=== PATIENT | female | born 1995 | race Caucasian/White ===

== ENCOUNTER 2017-11-06 16:22 | Emergency (ER) | payer OTHER ==
[2017-11-06 16:53] VITALS: BP 138/78
--- NOTE | 2017-11-06 16:55 | UC ---
Respiratory Complaint HPI - HPI Summary HPI Summary: 22 year old female presents with complains of cough and right sided back pain. - History of Current Complaint Chief Complaint: UCGeneralIllness Stated Complaint: COUGH,BACK & RIB PAIN Time Seen by Provider: 11/06/17 16:55 Hx Obtained From: Patient Hx Last Menstrual Period: 10/30/17 Onset/Duration: Sudden Onset Severity Initially: Moderate Severity Currently: Moderate Pain Scale Used: 0-10 Numeric - 5 - Allergies/Home Medications Allergies/Adverse Reactions: Allergies Allergy/AdvReac Type Severity Reaction Status Date / Time Amoxicillin Allergy Hives Verified 11/06/17 16:47 Azithromycin [From Zithromax] Allergy Hives Verified 11/06/17 16:47 Penicillins Allergy Hives Verified 11/06/17 16:47 PMH/Surg Hx/FS Hx/Imm Hx Previously Healthy: Yes - Surgical History Surgical History: None - Family History Known Family History: Positive: Other - mother with gallbladder disease - Social History Alcohol Use: None Substance Use Type: None Smoking Status (MU): Never Smoked Tobacco - Immunization History Most Recent Influenza Vaccination: no Review of Systems Constitutional: Negative Skin: Negative Eyes: Negative ENT: Sore Throat, Nasal Discharge, Sinus Congestion, Sinus Pain/Tenderness Respiratory: Cough Cardiovascular: Negative Gastrointestinal: Negative Genitourinary: Negative Motor: Negative Neurovascular: Negative Musculoskeletal: Negative Neurological: Negative Psychological: Negative All Other Systems Reviewed And Are Negative: Yes Physical Exam Triage Information Reviewed: Yes Vital Signs: Initial Vital Signs Temp 38.0 C 11/06/17 16:48 Pulse 84 11/06/17 16:48 Resp 20 11/06/17 16:48 BP 138/78 11/06/17 16:48 Pulse Ox 100 11/06/17 16:48 Vital Signs Reviewed: Yes Eye Exam: Normal ENT: Positive: Nasal congestion, Nasal drainage, Sinus tenderness Dental Exam: Normal Neck exam: Normal Neck: Positive: 1 Respiratory: Positive: Rhonchi, Wheezing Cardiovascular Exam: Normal Abdominal Exam: Normal Musculoskeletal Exam: Normal Neurological Exam: Normal Psychological Exam: Normal Skin Exam: Normal UC Diagnostic Evaluation - Laboratory O2 Sat by Pulse Oximetry: 100 Respiratory Course/Dx - Differential Dx/Diagnosis Provider Diagnoses: sinusitis. post nasal drip Discharge - Discharge Plan Condition: Stable Disposition: HOME Prescriptions: Ibuprofen TAB* [Motrin TAB* 800 MG] 800 mg PO Q6H #30 tab Methocarbamol TAB* [Robaxin 500 MG TAB*] 500 mg PO TID PRN #30 tab PRN Reason: Spasms - Back Patient Education Materials: Back Pain (ED) Forms: *Work Release Referrals: No Primary Care Phys,NOPCP [Primary Care Provider] -
--- NOTE | 2017-11-06 17:19 | RAD ---
INDICATION: Cough and back pain. COMPARISON: Comparison is made with prior chest x-ray study from September 02, 2016. TECHNIQUE: Dual-energy PA and lateral views of the chest were obtained. FINDINGS: The heart is within normal limits in size. Mediastinal and hilar contours appear within normal limits. The lungs are clear. No pleural effusion is present. IMPRESSION: NO EVIDENCE FOR ACTIVE CARDIOPULMONARY DISEASE.
== END 2017-11-06 17:43 | disposition home or self-care (01) ==
LOC: UCCORT 16:22
DX: J32.9 Chronic sinusitis, unspecified (principal); R09.82 Postnasal drip; M54.9 Dorsalgia, unspecified; R07.81 Pleurodynia; Z88.0 Allergy status to penicillin; Z88.1 Allergy status to other antibiotic agents
CPT/HCPCS: 71020; 99212; G0463